=== PATIENT | female | born 2000 | race Caucasian/White ===

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

== ENCOUNTER 2018-01-15 08:59 | Emergency (ER) | payer BC, OTHER ==
[2018-01-15 09:11] VITALS: RESP 18
[2018-01-15] MEDS ORDERED: diphenhydrAMINE 50 MG/ML 1 ML VIAL IVP STA (09:43)
[2018-01-15] MEDS ORDERED: METOCLOPRAMIDE 5 MG/ML 2 ML VIAL IVP STA (09:43)
[2018-01-15] MEDS ORDERED: SODIUM CHLORIDE 0.9% 500 ML IV ONE (09:43)
--- NOTE | 2018-01-15 09:49 | ED ---
Head Injury HPI - General Chief complaint: Head Injury Stated complaint: Fall-Head Injury Time Seen by Provider: 01/15/18 09:37 Source: patient Mode of arrival: ambulatory Limitations: no limitations - History of Present Illness Initial comments: 18-year-old female patient presents to the emergency department today for complaints of left-sided headache and vomiting. States that the pain is sharp and stabbing and surrounding the left eye and forehead. Patient states that she did sustain a head injury on Tuesday. Patient states she was up on a step stool when she actually fell and hit her head on a window and then hit her head on a table. She denies any loss of consciousness with the injury. Patient states that she woke yesterday morning with a severe headache and nausea. Patient states that the headache persisted throughout the day. States that she woke again this morning with headache and again was nauseated and did have a vomiting episode. Patient states that she has had light and sound sensitivity with this. Denies any blurred double vision. Denies any dizziness or weakness. Denies any numbness or tingling to her extremities. She denies any other injuries. Patient denies any neck pain, back pain, chest pain, shortness of breath, abdominal pain, nausea, vomiting, or difficulties with bowel movements or urination. Denies any use of anticoagulant medications. - Related Data Previous Rx's Medication Instructions Recorded Pqk-Yaxm-Dandr Acid 1 cap PO DAILY #30 cap 04/03/17 [-U Capsule (formulary)] HYDROcodone/APAP 7.5-325MG [[place] 1 each PO Q6H PRN #18 tab 11/25/17 7.5-325] Ibuprofen [Motrin] 600 mg PO Q6HR PRN #30 tab 11/25/17 Allergies/Adverse reactions: Allergies Allergy/AdvReac Type Severity Reaction Status Date / Time Penicillins Allergy Swelling Verified 01/15/18 09:10 vicryl Allergy Intermediate Unknown Uncoded 01/15/18 09:10 Review of Systems ROS Statement: Those systems with pertinent positive or pertinent negative responses have been documented in the HPI. ROS Other: All systems not noted in ROS Statement are negative. Past Medical History Past Medical History: GERD/Reflux Additional Past Medical History / Comment(s): osteogenesis imperfecta. OB history: She has had one previous . This is her second and she has had care with me since first trimester. She was followed with maternal medicine as well. Normal anatomy ultrasound. History of Any Multi-Drug Resistant Organisms: None Reported Past Surgical History: Section, Orthopedic Surgery Additional Past Surgical History / Comment(s): rods in thighs and calves of both legs Past Anesthesia/Blood Transfusion Reactions: Postoperative Nausea & Vomiting ( PONV) Additional Past Anesthesia/Blood Transfusion Reaction / Comment(s): BROTHER=PONV Past Psychological History: No Psychological Hx Reported Smoking Status: Never smoker Past Alcohol Use History: None Reported Past Drug Use History: None Reported - Past Family History Brother(s) Additional Family Medical History / Comment(s): osteogenisis imperfecta General Exam Limitations: no limitations General appearance: alert, in no apparent distress, other (This is a well- developed, well-nourished adult female patient in no acute distress. Vital signs upon presentation are temperature 98.2F, pulse 77, respirations 18, blood pressure 115/80, pulse ox 97% on room air.) Head exam: Present: atraumatic, normocephalic, normal inspection Eye exam: Present: normal appearance, PERRL, EOMI. Absent: scleral icterus, conjunctival injection, nystagmus, periorbital swelling ENT exam: Present: normal exam, normal oropharynx, mucous membranes moist, TM's normal bilaterally Neck exam: Present: normal inspection, full ROM, other (Nontender, no step-off, no deformity to firm midline palpation of the posterior cervical spine. Full range of motion without pain or limitation.). Absent: tenderness, meningismus, lymphadenopathy Respiratory exam: Present: normal lung sounds bilaterally. Absent: respiratory distress, wheezes, rales, rhonchi, stridor Cardiovascular Exam: Present: regular rate, normal rhythm, normal heart sounds. Absent: systolic murmur, diastolic murmur, rubs, gallop, clicks GI/Abdominal exam: Present: soft, normal bowel sounds. Absent: distended, tenderness, guarding, rebound, rigid Back exam: Present: normal inspection, other (Nontender, no step-off, no deformity to firm midline palpation of the thoracic and lumbar vertebrae. Full range of motion without pain or limitation.). Absent: vertebral tenderness Neurological exam: Present: alert, oriented X3, CN II-XII intact Psychiatric exam: Present: normal affect, normal mood Skin exam: Present: warm, dry, intact, normal color. Absent: rash Course Vital Signs 01/15/18 09:07 Temperature 98.2 F Pulse Rate 77 Respiratory 18 Rate Blood Pressure 115/80 O2 Sat by Pulse 97 Oximetry Medical Decision Making - Medical Decision Making 18-year-old female patient presents the emergency department today for complaints of left frontal headache and vomiting after sustaining a head injury on Tuesday. Neurologic examination is intact. Given patient's symptoms are did perform CT of the brain which did show evidence suggesting diffuse cerebral edema. MRI was recommended however we do not have MRI on Tuesday. I did discuss the case with the ER attending at [facility] who accepts transfer. I did discuss findings results with the patient, she is agreeable. - Radiology Data Radiology results: report reviewed, image reviewed CT brain without contrast was obtained. Report was reviewed in its entirety. Impression by Dr. Saenz show small ventricles and increased white matter lucency may represent diffuse cerebral edema. MRI of the brain would be suggested. Disposition Clinical Impression: Cerebral edema, Head injury Disposition: OTHER INSTITUTION NOT DEFINED Condition: Serious Referrals: Ezekiel Tapia DO [Primary Care Provider] - 1-2 days - Out of Hospital Transfer - Req. Specs Out of Hospital Transfer - Requested Specifics: Other Emergency Center ([facility])
--- NOTE | 2018-01-15 10:26 | CT ---
EXAMINATION TYPE: CT brain wo con DATE OF EXAM: 01/15/2018 COMPARISON: NONE HISTORY: Left frontal injury 2 days ago. Headache and weakness since CT DLP: 999.8 mGycm Automated exposure control for dose reduction was used. FINDINGS: Central structures are midline. There is no evidence of hydrocephalus. Ventricles are quite small and there is diffuse periventricular white matter lucency. This may be due to cerebral edema. There is n o midline shift or intracranial blood. There is mild mucoperiosteal thickening involving the ethmoid sinuses. The remainder the paranasal si nuses and mastoids are clear. The bony calvarium is intact. IMPRESSION: SMALL VENTRICLES AND INCREASED WHITE MATTER LUCENCY MAY REPRESENT DIFFUSE CEREBRAL EDEMA. AN MRI OF T HE BRAIN WOULD BE SUGGESTED.
[2018-01-15 12:27] VITALS: BP 105/55; PULSE 66; TEMP 98.1
== END 2018-01-15 12:50 | disposition other institution (70) ==
LOC: EC 08:59
DX: S06.1X0A Traumatic cerebral edema without loss of consciousness, initial encounter (principal); Z88.0 Allergy status to penicillin; Z91.048 Other nonmedicinal substance allergy status; W08.XXXA Fall from other furniture, initial encounter
CPT/HCPCS: 70450; 99284; 96374; 96375; 96361; J1200; J2765

== ENCOUNTER 2021-07-04 23:24 | Outpatient (CLI) | payer BC, OTHER ==
[2021-07-05 01:03] VITALS: BP 118/78; PULSE 116; RESP 16; TEMP 98.2
--- NOTE | 2021-07-05 08:36 | P.MSEPDOC ---
Presenting Problems - Arrival Data Date of Arrival on Unit: 07/05/21 Time of Arrival on Unit: 23:24 Mode of Transport: Ambulatory - Complaint OB-Reason for Admission/Chief Complaint: Rule Out SROM Comment: Pt states was in the bathtub around 2129 and had a gush of fluid, pt of [place], denies wearing a pad in and denies problems with placents. R c/s 07/13 Medical History - Information : 4 Para: 3 Term: 3 : 0 Abortions: Spontaneous or Elective: 0 Number of Living Children: 3 - Gestational Age Gestational Age by SULLY (wks/days): 37 Weeks and 6 Days - History Complications: Prior Review of Systems - Review of Systems Constitutional: No problems Breast: No problems ENT: No problems Cardiovascular: No problems Respiratory: No problems Gastrointestinal: No problems Genitourinary: No problems Musculoskeletal: No problems Neurological: No problems Skin: No problems Vital Signs - Temperature Temperature: 98.2 F Temperature Source: Oral - Pulse Right Brachial Pulse Rate: 116 Pulse Assessment Method: Automatic Cuff - Respirations Respiratory Rate: 16 Oxygen Delivery Method: Room Air O2 Sat by Pulse Oximetry: 97 - Blood Pressure Right Arm Blood Pressure: 118/78 Blood Pressure Mean: 91 Blood Pressure Source: Automatic Cuff Medical Screen Scoring - Cervical Exam Dilation (cm): 1 Effacement (%): 50 Station: -2 Membranes: Intact - Uterine Contractions Frequency From (mins): 0 Frequency To (mins): 0 Duration From (seconds): 0 Duration To (seconds): 0 Intensity: Absent Resting: Soft to palpation - Assessment - Baby A Baseline FHR: 135 Heart Rate - NICHD Category: Category I (Normal) Physician Notification - Physician Notified Physician Notified Date: 07/05/21 Physician Notified Time: 23:51 Physician: Igor Gillespie Order Received: Yes - Notification Comment Comment: Reported negative negative amnisure, reactive nst and vitals wnl. Orde rs to d.c home at this time. Maternal Triage Index - Maternal Triage Index Presenting for scheduled procedure w/no complaint: No - Stat/Priority 1 Stat Priority 1: No - Urgent/Priority 2 Urgent Priority 2: No - Prompt/Priority 3 Prompt Priority 3: No - Non-Urgent/Priority 4 Non-Urgent Priority 4: Yes Criteria Met for Priority 4: Pt states leaking at 2130 when she was in the bathtub Disposition - Disposition OB Disposition: Discharge to home, Written follow up instructions reviewed Discharge Date: 07/05/21 Discharge Time: 23:55 I agree with the RN Medical Screening Exam: Yes Case reviewed; plan agreed upon as documented in EMR&OBIX.: Yes Diagnosis: FALSE LABOR AT OR AFTER 37 COMPLETED WEEKS OF GESTATION
== END 2021-07-04 23:55 | disposition home or self-care (01) ==
LOC: FBPOP 23:24
PROVIDERS: ATTEND Obstetrics & Gynecology
DX: O47.1 False labor at or after 37 completed weeks of gestation (principal); Z3A.37 37 weeks gestation of pregnancy; Z88.0 Allergy status to penicillin; Z91.09 Other allergy status, other than to drugs and biological substances
CPT/HCPCS: 59025; 84112; 99213